=== PATIENT | female | born 1985 | race Caucasian/White ===

== ENCOUNTER 2016-08-22 13:01 | Emergency (ER) ==
[2016-08-22 13:14] VITALS: BP 154/85
--- NOTE | 2016-08-22 14:26 | Diag Imaging Result Document ---
PROCEDURE NAME: WRIST COMPLETE LEFT - 08/22/2016 LEFT WRIST, THREE VIEWS: FINDINGS: There is no evidence of fracture or dislocation. No other definite bony abnormalities are present. IMPRESSION: No acute disease.
--- NOTE | 2016-08-22 14:28 | PROVIDER DOCUMENTATION ---
HPI-Musculoskeletal Pain/Inj - GENERAL Source: patient <Irasema Carmona - Last Filed: 08/22/16 14:27> - GENERAL Source: patient - HX OF PRESENT ILLNESS-MUSKULOSKELTAL Quality of Pain: reports: aching Severity in ED: mild, moderate Onset/Duration: abrupt, this morning Timing: still present, constant Modifying Factors: worse with: movement Locality of Occurance: Home Similar Symptoms Previously?: No Recently seen or treated by another doctor?: No - FALL INJURY Location of Pain/Injury: reports: upper extremity (Left wrist) Pain Radiation: reports: no radiation Reason for Fall: reports: lost balance Symptoms prior to fall:: reports: none Loss of Consciousness: no loss of consciousness Injury Associated Symptoms: reports: arm pain, joint pain. denies: back/neck pain, chest pain, dizziness, vomiting <James Jackman - Last Filed: 08/22/16 15:27> - GENERAL Chief Complaint: Extremity Injury Stated Complaint: fall/L hand injury Time Seen by Provider: 08/22/16 14:24 - HX OF PRESENT ILLNESS-MUSKULOSKELTAL Nature of Presenting Problem: Patient is a 31 y/o f that presents to the ER with left wrist pain post fall. patient slipped and lost footing, she had an outstretch hand on left side. ( James Jackman) Review of Systems - Adult - REVIEW OF SYSTEMS - ADULT Constitutional: denies: chills, fever Eyes: denies: decreased vision, blurred vision, double vision Ears, Nose, Mouth & Throat: denies: epistaxis, sinus problem, mouth/dental pain , mouth swelling Cardiovascular: denies: chest pain, palpitations, syncope Respiratory: denies: hemoptysis, wheezing Gastrointestinal: denies: abdominal pain, diarrhea, nausea, vomiting Genitourinary: reports: no symptoms reported Musculoskeletal: reports: joint pain. denies: back pain, neck pain Integumentary: reports: no symptoms reported Neurological: reports: no symptoms reported Psychiatric: reports: no symptoms reported Endocrine: reports: no symptoms reported Hematologic/Lymphatic: reports: no symptoms reported Allergic/Immunologic: reports: no symptoms reported All Other Systems: Reviewed and Negative <James Jackman - Last Filed: 08/22/16 15:27> Past History - Adult - PAST MEDICAL HISTORY-ADULT Major Childhood Illnesses: reports: denies history Cardiovascular: reports: HTN, hyperlipidemia Gastrointestinal: reports: GERD Neurological: reports: headaches/migraines, other (one seizure) Psychiatric: reports: depression Other Conditions: reports: denies history - PRIOR SURGERIES/PROCEDURES Surgical/Procedure History: reports: cholecystectomy, BTL, , other ( Uterine ablation, fatty tumor) - PRIOR HOSPITALIZATIONS Prior Hospitalizations: reports: for other non-related - IMMUNIZATION STATUS Childhood Immunizations: See Nurse Assessment Flu Vaccine: See Nurse Assessment - FAMILY HISTORY Family History: CAD over 55 yo, CAD under 55yo, other (Dad passed of MA at age 43, Brother had MA at age 30) <Irasema Carmona - Last Filed: 08/22/16 14:27> - PAST MEDICAL HISTORY-ADULT Review of Records: reports: Old Records Reviewed, Nursing Assessment Review, Medications Reviewed Cardiovascular: reports: HTN Gastrointestinal: reports: GERD Neurological: reports: headaches/migraines, Seizures/Epilepsy Psychiatric: reports: anxiety, depression - PRIOR SURGERIES/PROCEDURES Surgical/Procedure History: reports: cholecystectomy, BTL, , tonsillectomy - IMMUNIZATION STATUS Childhood Immunizations: See Nurse Assessment Flu Vaccine: See Nurse Assessment - FAMILY HISTORY Family History: reviewed, not pertinent - SOCIAL HISTORY Smoking: non-smoker Living Situation: family <James Jackman - Last Filed: 08/22/16 15:27> Physical Exam-Injury Related - Physical Exam-Injury Related Initial Vital Signs Reviewed: Yes General Appearance: alert, no apparent distress Eyes: PERRL/EOMI, pink conjunctivae Head, Ears, Nose, Mouth & Throat: normocephalic/atraumatic, moist mucous membranes, normal ENT inspection Neck: non-tender, full range of motion, normal inspection Respiratory: chest non-tender, lungs clear, normal breath sounds, no respiratory distress, no accessory muscle use Cardiovascular: regular rate, rhythm, no edema, no murmur Abdominal Exam: normal bowel sounds, non tender, soft Back Exam: no CVA tenderness, no vertebral tenderness Extremity: no calf tenderness, normal capillary refill, pelvis stable, tenderness (left wrist, snuffbox tendernesss mild, positive pms). negative: deformity Integumentary: normal color, warm/dry Neurologic: grossly normal, no motor/sensory deficits Psych/Mental Status: normal mood/affect, normal thought content, normal thought process, oriented x 3 <James Jackman - Last Filed: 08/22/16 15:27> Progress <Irasema Carmona - Last Filed: 08/22/16 14:27> - XRAY 1 XRAY: Left XRAY Study: Wrist Impression: Normal XRAY Interpretation: negative <James Jackman - Last Filed: 08/22/16 15:27> - PLAN OF CARE/RESULTS Progress/Plan/Lab Results: Vital Signs Temp Pulse Resp BP Pulse Ox 08/22/16 13:13 97.5 F L 83 16 154/85 100 hydromorphone HCl * [From Dilaudid] Allergy (Mild, Verified 03/06/16 22:03) ITCHING Penicillins Allergy (Mild, Verified 03/06/16 22:03) VOMITING Sulfa (Sulfonamide Antibiotics) [Sulfa(Sulfonamide Antibiotics)] Allergy (Mild, Verified 03/06/16 22:03) RASH ketorolac tromethamine * [From Toradol] Adverse Reaction (Intermediate, Verified 03/06/16 22:03) HEADACHE tramadol HCl * [From Ultram] Adverse Reaction (Intermediate, Verified 03/06/16 22:03) HEADACHE Metoprolol [Lopressor] 25 mg PO HS 04/03/14 Ranitidine [Zantac] 150 mg PO HS 08/18/14 Omeprazole 40 mg PO HS 04/30/15 Topiramate [Topamax] 50 mg PO DAILY 12/14/15 Aripiprazole [Abilify] 5 mg PO QHS 03/06/16 Desvenlafaxine E.r. [Pristiq ER] 50 mg PO DAILY 03/06/16 Pregabalin [Lyrica] 100 mg PO BID 03/06/16 Triamterene/Hydrochlorothiazid [Triamterene-Hctz 37.5-25 mg Cp] 1 each PO DAILY 03/06/16 Mineral Oil [Mineral Oil Heavy] 30 ml MC BID #2000 oil 03/07/16 Peg 3350/Na Sulf,Bicarb,Cl/KCl [Golytely Solution] 4,000 ml PO ONCE #1 soln.recon 03/07/16 Diclofenac Sodium 50 mg PO Q8-12H PRN PRN #30 tablet.dr 08/22/16 Methocarbamol [Robaxin] 500 mg PO BID #14 tablet 08/22/16 Orders Category Date Time Status Wrist Splint DIRECTED Care 08/22/16 14:27 Active WRIST COMPLETE LEFT [RAD] Stat Exams 08/22/16 13:15 Draft pt sun be d/c home f/u with ortho, pt was clinically stable, rx given (James Jackman) Procedures - SPLINTING Left Upper Extremity Pre-Procedure Neurovascular Exam: Intact Pre-Fabricated Splint: Velcro Splint Application (Hand-Made): Wrist Applied By: ED Nurse Post Procedure Neurovascular Exam: Intact <James Jackman - Last Filed: 08/22/16 15:27> Departure - Departure Time of Disposition Order: 14:27 Certified Medical Emergency: Emergent <Irasema Carmona - Last Filed: 08/22/16 14:27> <James Jackman - Last Filed: 08/22/16 15:27> - Departure DIAGNOSIS: Left wrist sprain Qualifiers: Encounter type: initial encounter Qualified Code(s): S63.502A - Unspecified sprain of left wrist, initial encounter Disposition: HOME 01 Condition: Stable Additional Instructions: Follow up with Dr. Kenyon if you continue having pain ED Follow Up Instructions: You have been treated by a care provider in the Emergency Department. These instructions are being provided to you so you can have an understanding of how to care for yourself upon discharge. Upon discharge from the Emergency Department, you are responsible for making arrangements for follow-up care by a physician of your choice. Take all prescribed medications as directed. Return to the Emergency Department immediately for any new or worsening symptoms. You may call the Physician Referral phone number at [phone] to obtain a list of Physicians who are taking new patients. Prescriptions: Diclofenac Sodium 50 mg PO Q8-12H PRN PRN #30 tablet.dr ROMAN Reason: Pain Methocarbamol [Robaxin] 500 mg PO BID #14 tablet Referrals: Adri Costa CRNP [Primary Care Provider] - Vikki Noble MD [STAFF PHYSICIAN] - Instructions: Wrist Sprain Attestation - Scribe Verification/Attestation Scribe:: Jackman,James T. Acting as Scribe for:: Irasema Carmona Scribe documention review:: This chart was documented by a scribe and accurately reflects the service the provider performed and the decisions made by the provider. - Physician/ Mid-level Attestation Patient care was provided by Mid-level provider (SPECIAL PROCEDURES TECHNOLOGIST/PA):: Yes Mid-level provider:: Irasema Carmona Mid-level documentation review:: The Mid-level provider documentation, treatment plan and medical decision making was reviewed by the physician who agrees with all treatment and medical decision making by the MLP. <James Jackman - Last Filed: 08/22/16 15:27> Physician Attestation
== END 2016-08-22 15:27 | disposition home or self-care (01) ==
LOC: ED 13:01
DX: S63.502A Unspecified sprain of left wrist, initial encounter (principal); M25.532 Pain in left wrist; I10 Essential (primary) hypertension; E78.5 Hyperlipidemia, unspecified; Z82.49 Family history of ischemic heart disease and other diseases of the circulatory system; W19.XXXA Unspecified fall, initial encounter
CPT/HCPCS: 99283

== ENCOUNTER 2019-01-11 03:00 | Inpatient (IN) ==
[~2019-01-11 03:00] MED LIST: ASPIRIN PO ONE
[2019-01-11] MEDS ORDERED: ASPIRIN ONE (03:15)
--- NOTE | 2019-01-11 04:14 | PROVIDER DOCUMENTATION ---
HPI-General Adult - General Chief Complaint: Chest Pain Stated Complaint: CHEST PAIN/HIGH BP/SOB Time Seen by Provider: 01/11/19 04:08 Source: patient Allergies/Adverse Reactions: Patient Allergies Allergy/AdvReac Type Severity Reaction Status Date / Time hydromorphone HCl * Allergy Mild HIVES Verified 12/18/18 05:13 [From Dilaudid] Penicillins Allergy Mild VOMITING Verified 12/18/18 05:13 Sulfa (Sulfonamide Allergy Mild RASH Verified 12/18/18 05:13 Antibiotics) [Sulfa(Sulfonamide Antibiotics)] ketorolac tromethamine * AdvReac Intermediate HIVES Verified 12/18/18 05:13 [From Toradol] tramadol HCl * [From Ultram] AdvReac Intermediate HIVES Verified 12/18/18 05:13 Home Medications: Home Medication List Medication Instructions Recorded Confirmed Last Taken Type Metoprolol [Lopressor] 25 mg PO 04/03/14 03/09/18 03/08/18 22:30 History Desvenlafaxine E.r. [Pristiq ER] 100 mg PO QPM 03/06/16 03/09/18 03/08/18 22:30 History Butalbital/APAP/Caffeine [Fioricet] 1 ea PO Q4H PRN PRN #14 tab 01/08/18 03/09/18 03/09/18 12:00 Rx Diltiazem HCl [Diltiazem 24Hr ER] 240 mg PO 01/08/18 03/09/18 03/08/18 22:30 History Amitriptyline [Elavil] 50 mg PO QPM 02/17/18 03/09/18 03/08/18 22:30 History Diazepam [Valium] 5 mg PO PRN PRN 02/17/18 03/09/18 02/16/18 History Estradiol 1 tab PO QAM 02/17/18 03/09/18 03/09/18 07:30 History Zonisamide 3 cap PO HS 02/17/18 03/09/18 03/08/18 22:30 History Promethazine [Phenergan] 25 mg PO Q6H PRN PRN #20 tab 03/09/18 Unknown Rx Telmisartan 80 mg PO QAM 03/09/18 03/09/18 03/09/18 07:30 History Clindamycin [Cleocin] 300 mg PO Q6HR #40 cap 06/07/18 Unknown Rx Benzonatate [Tessalon Perle] 100 mg PO BID #12 capsule 09/10/18 Unknown Rx Methylprednisolone [Medrol Dosepak] 4 mg PO ONCE #1 package 09/10/18 Unknown Rx Promethazine [Phenergan] 1 tab PO Q6H PRN PRN #12 tab 12/18/18 Unknown Rx - History of Present Illness -Gen Adult Nature of Presenting Problems: 33 y/o F presents to the ED complaining of chest pain. States at about 6pm last night she began to have achy pain in her left chest with mild dyspnea and nausea. States she thought it was her anxiety so she took her valium and went to bed but then could not sleep due to the pain and states when she got sweaty she decided to come to the ED. No cough no recent illness. No calf pain or recent travel. Has HTN, HPL, and DM. No known CAD and has not had a prior stress test. Strong family history of early CAD Review of Systems - Adult - REVIEW OF SYSTEMS - ADULT Constitutional: reports: no symptoms reported Eyes: reports: no symptoms reported Ears, Nose, Mouth & Throat: reports: no symptoms reported Cardiovascular: reports: chest pain Respiratory: reports: no symptoms reported Gastrointestinal: reports: nausea. denies: abdominal pain, vomiting Genitourinary: reports: no symptoms reported Musculoskeletal: reports: no symptoms reported Integumentary: reports: no symptoms reported Neurological: reports: no symptoms reported Psychiatric: reports: no symptoms reported Endocrine: reports: no symptoms reported Hematologic/Lymphatic: reports: no symptoms reported Allergic/Immunologic: reports: no symptoms reported All Other Systems: Reviewed and Negative Past History - Adult - PAST MEDICAL HISTORY-ADULT Review of Records: reports: Old Records Reviewed, Nursing Assessment Review, Medications Reviewed, Social history reviewed & non-contributory. Major Childhood Illnesses: reports: denies history Cardiovascular: reports: HTN, hyperlipidemia Respiratory: reports: denies history Gastrointestinal: reports: GERD Obstetrical/Gynecological: reports: denies history Genitourinary: reports: denies history Musculoskeletal: reports: denies history Neurological: reports: headaches/migraines, Seizures/Epilepsy Psychiatric: reports: anxiety, depression Endocrine/Immune: reports: denies history Other Conditions: reports: denies history - PRIOR SURGERIES/PROCEDURES Surgical/Procedure History: reports: cholecystectomy, hysterectomy, BTL, C- section, tonsillectomy, orthopedic (extremity) (carpal tunnel bilateral), breast (tumor removed) - PRIOR HOSPITALIZATIONS Prior Hospitalizations: reports: for other non-related - IMMUNIZATION STATUS Childhood Immunizations: See Nurse Assessment Flu Vaccine: See Nurse Assessment - FAMILY HISTORY Family History: reviewed, not pertinent Physical Exam-General - PHYSICAL EXAM-ADULT Initial Vital Signs Reviewed: Yes - CONSTITUTIONAL General Appearance: appears well, alert, no apparent distress - EYES Eyes: PERRL/EOMI - HEAD, EARS, NOSE, MOUTH & THROAT HENMT: normocephalic/atraumatic, moist mucous membranes - NECK Neck: non-tender, full range of motion, supple - RESPIRATORY Respiratory: chest non-tender, lungs clear, normal breath sounds - CARDIOVASCULAR Cardiovascular: normal peripheral pulses, regular rate, rhythm, no edema, no JVD - GASTROINTESTINAL (ABDOMEN) Abdominal Exam: non tender, soft - MUSCULOSKELETAL Back Exam: normal inspection, no CVA tenderness, no vertebral tenderness Extremity: normal range of motion, non-tender - SKIN Integumentary: normal color, normal turgor, warm/dry - NEUROLOGIC Neurologic: grossly normal, no motor/sensory deficits - PSYCHIATRIC Psych/Mental Status: normal mood/affect, normal thought content, normal thought process, oriented x 3 Progress - PLAN OF CARE/RESULTS Progress/Plan/Lab Results: Vital Signs - 8 hr 01/11/19 03:00 Temperature 98.3 F Pulse Rate 95 H Respiratory Rate 18 Blood Pressure 116/73 O2 Sat by Pulse Oximetry 96 Orders Category Date Time Status If abnormal EKG, order: NOW Care 01/11/19 03:21 Active CHEST-2 VIEWS [RAD] Stat Exams 01/11/19 03:21 Taken Aspirin Med 01/11/19 03:15 Discontinued 325 mg .ROUTE .STK-MED ONE Aspirin Med 01/11/19 03:00 Discontinued 325 mg PO NOW ONE CP/Palp <45 No Known Cardiac Hx Stat Oth 01/11/19 03:21 Ordered EKG [EKG] Stat Ther 01/11/19 03:21 Ordered chest pain will further evaluate for causes including but not limited to acs, arrythmia, anxiety, ptx, pna, pe Result Diagrams: 01/11/19 03:32 01/11/19 03:32 - REASSESSMENT Reassessment #1 Status: improving (chest pain resolved. ED work up unremarkable but presentation concerning for ACS. Will admit for further evaluation and treatment. Discussed case with Dr. Acosta, hospitalist, who will see and admit pt.) - EKG 1 Time of EKG reading by physician:: 03:12 EKG Read and Signed by:: Kelsi Martinez EKG Interpretation (*Must complete 3 of following elements*): Normal (Sinus Rhythm, rate 96, no acute st changes, normal axis and intervals) - XRAY 1 XRAY Study: Chest Impression: Normal Departure - Departure Date of Disposition Decision: 01/11/19 Time of Disposition Decision: 06:06 DIAGNOSIS: Chest pain Qualifiers: Chest pain type: unspecified Qualified Code(s): R07.9 - Chest pain, unspecified Disposition: ADMITTED INPATIENT 09 Certified Medical Emergency: Emergent Condition: Good Referrals and Follow-Ups: Jermain Hernandez MD [Primary Care Provider] - - Critical Care Note This patient required my direct & personal management of CC.: No Attestation - Physician/ BOB Attestation Patient care was provided by Advanced Practice Provider:: No The physician spent face to face time with patient:: Yes Advanced Practice Provider documentation review:: Supervising physician onsite and consulted in the evaluation and care of this patient. The physician did have a face to face encounter with the patient.
[2019-01-11] MEDS ORDERED: NITROGLYCERIN TOP ONE (04:18)
[2019-01-11 04:55] LABS: BASO# 0.03 X1000 (0.0-0.2); BASO% 0.4 % (0.0-0.8); EOS# 0.24 X1000 (0.0-0.7); EOS% 2.8 % (0.0-10.0); HEMATOCRIT 38.1 % (37.0-47.0); HEMOGLOBIN 13.5 g/dL (12.0-16.0); IMM GRAN# 0.02 X1000 (0.0-0.04); IMM GRAN% 0.2 % (0.0-0.5); LYMPH% 38.7 % (20.5-51.1); MCH 31.3 PG (27-31); MCHC 35.4 g/dL (33-37); MCV 88.2 FL (81-99); MONO# 0.77 X1000 (0.11-0.59); MPV 10.2 FL (7.4-10.4); NEUT# 4.16 X1000 (1.4-6.5); NEUT% 48.9 % (42.2-75.2); PLT 288 X1000 (130-400); RBC 4.32 XMIL (4.2-5.4); RDW 13.1 % (11.5-14.5); WBC 8.52 X1000 (4.8-10.8)
[2019-01-11 05:19] LABS: AGAP 15; BUN 13 mg/dL (8-22); CALCIUM 8.4 mg/dL (8.8-10.2); CHLORIDE 101 mmol/L (98-107); COSMO 279; CREATININE 0.7 mg/dL (0.5-0.9); ESTIMATED GFR > 60; GLUCOSE 181 mg/dL (70-104); POTASSIUM 3.6 mmol/L (3.5-5.1); SODIUM 137 mmol/L (136-145); TCO2 21 mmol/L (25-35)
--- NOTE | 2019-01-11 06:44 | EKG Report ---
Test Performed on : 01/11/2019 03:06:33 AM Test Reason : chest pain Blood Pressure : / mmHG Vent. Rate : 096 BPM Atrial Rate : 096 BPM P-R Int : 202 ms QRS Dur : 088 ms QT Int : 386 ms P-R-T Axes : 052 024 020 degrees QTc Int : 487 ms Normal sinus rhythm. Prolonged QT Abnormal ECG When compared with ECG of 10-SEP-2018 11:51, No significant change was found Unconfirmed Result
--- NOTE | 2019-01-11 07:08 | Diag Imaging Result Doc PS360 ---
EXAM: CHEST-2 VIEWS HISTORY: chest pain TECHNIQUE: Chest two views COMPARISON: 09/10/2018 FINDINGS: The lungs are well expanded. The heart is borderline mildly prominent. The vessels are not distended. There are no infiltrates. No pleural effusions. IMPRESSION: No acute abnormality. Electronically signed by Reggie Vital 01/11/2019 7:05 AM
[2019-01-11 08:03] VITALS: BP 121/57
[2019-01-11 10:25] LABS: HEMOGLOBIN A1C 5.2 % (4.8-6.0)
[2019-01-11 11:11] LABS: ALB/GLOB RATIO 1.3; ALBUMIN 3.7 g/dL (3.5-5.0); DIRECT BILIRUBIN 0.1 mg/dL (0.00-0.20); TOTAL BILIRUBIN 0.22 mg/dL (0.20-1.00); TOTAL PROTEIN 6.6 g/dL (6.3-8.3)
[2019-01-11] MEDS ORDERED: MOTRIN PO ONE (11:58)
[2019-01-11] MEDS ORDERED: TYLENOL PO ONE (12:05)
--- NOTE | 2019-01-11 13:06 | HISTORY AND PHYSICAL ---
PRIMARY CARE PHYSICIAN: ROSALIE Peña. CHIEF COMPLAINT: Chest pain. HISTORY OF PRESENT ILLNESS: Ms. Kamara is a 33-year-old female with a history of morbid obesity, anxiety and depression, hypertension, Type 2 diabetes mellitus who comes into the ER with chest pain that began last night at around 6. She was not doing anything in particular, riding around in her car. She felt a midsternal pain which she relates radiated up to the neck and down the arm on the left. These episodes lasted 10-15 minutes at a time, and she has had multiple of these episodes throughout the night. She also reports shortness of breath and some nausea. She denies any fevers or chills, no cough or congestion. When she got to the ER today, labs were done and found to be unremarkable. EKG did not show anything acute. Chest x-ray was negative. We will admit her for further treatment and evaluation. PAST MEDICAL HISTORY: 1. Morbid obesity. 2. Hypertension. 3. Anxiety and depression. 4. Lifelong hormone replacement therapy, status post hysterectomy. 5. Pseudoseizures. 6. Migraine headaches. SURGICAL HISTORY: She has had back surgery. She has had a hysterectomy, cholecystectomy, fatty tumor removal from the breast x 2, D C, hysteroscopy, endometrial ablation. SOCIAL HISTORY: No tobacco, alcohol or drug use. She is . She has 3 children. FAMILY HISTORY: Father in his 40s from heart disease. Mother recently with pneumonia and sepsis. REVIEW OF SYSTEMS: A 14-point review of systems was obtained and found to be negative with the exception of the HPI. ALLERGIES: Dilaudid, penicillin, sulfur, Toradol, Tramadol. HOME MEDICATIONS: Yet to be compiled. PHYSICAL EXAMINATION: VITAL SIGNS: Blood pressure 121/57; heart rate 105; respiratory rate 17; O2 saturation 98% on room air; temperature 98.1. GENERAL: A morbidly obese female lying in the hospital bed in no acute distress. NEUROLOGICAL: The patient is awake, alert and oriented. Follows commands. No focal deficits. HEENT: Head is atraumatic and normocephalic. Pupils are equal, round and reactive to light. Oral mucosa is moist. Dentition is extremely poor. NECK: Trachea is midline. There is no JVD. CHEST: Diminished but clear to auscultation. CARDIOVASCULAR: Regular rate and rhythm. S1 and S2 are noted. No murmurs. GASTROINTESTINAL: Soft, nontender and nondistended. Bowel sounds positive. EXTREMITIES: No edema, clubbing or cyanosis. Pulses are 2+ bilaterally. DIAGNOSTIC DATA: EKG sinus rhythm. No acute ST or T abnormalities. Chest x-ray is negative. Laboratory data reviewed. Abnormalities include a C02 of 21, glucose 181 and calcium 8.4 otherwise unremarkable. ASSESSMENT AND PLAN: 1. Atypical chest pain: We will admit the patient and order a stress test, make sure she is on aspirin daily, check hemoglobin A1C and lipid panel and follow that. If negative, hopefully, we can send her home. Stress test has been ordered for today. We will also start her on p.o. Prilosec for the high likelihood of reflux or gastritis. 2. Headache with history of migraines: We will try to get her medicines reconciled and treat accordingly. 3. Hypertension: Currently stable, awaiting med rec to continue her home meds if appropriate. 4. Anxiety and depression: Stable, continue home meds once reconciled. 5. Morbid obesity: Weight loss advised. 6. Further recommendations to follow. Dictated by ROSALIE Marrero for Miguel A Ornelas MD cc: ROSALIE Marrero MD
--- NOTE | 2019-01-11 14:32 | EKG Report ---
Test Performed on : 01/11/2019 12:40:59 PM Test Reason : chest pain Blood Pressure : / mmHG Vent. Rate : 079 BPM Atrial Rate : 079 BPM P-R Int : 184 ms QRS Dur : 086 ms QT Int : 430 ms P-R-T Axes : 060 022 024 degrees QTc Int : 493 ms Normal sinus rhythm. Prolonged QT Abnormal ECG When compared with ECG of 11-JAN-2019 03:06, (Unconfirmed) No significant change was found Confirmed by Shane RUANO, Laci Alvarenga ([id number]) on 01/14/2019 11:29:44 AM
--- NOTE | 2019-01-11 16:31 | Diag Imaging Result Document ---
PROCEDURE NAME: MYOCARDIAL PERF SCAN, STR/REST - 01/11/2019 INDICATION: Chest pain. PROCEDURE PERFORMED: 1. Kaitlyn protocol stress. 2. One-day stress rest myocardial perfusion imaging. PROCEDURE IN DETAIL: Ms Kamara was brought to the nuclear laboratory and had a resting study with injection of 15.6 mCi of technetium-99m sestamibi with usual imaging protocol utilized. Subsequently was brought back and had a Kaitlyn protocol stress and at peak stress, was injected with 46 millicuries of technetium-99m sestamibi with usual imaging protocol utilized. FINDINGS: KAITLYN PROTOCOL STRESS RESULTS: 1. Baseline EKG showed sinus rhythm. 2. Patient exercised for a total of 6 minutes 5 seconds, achieving peak heart rate of 164 and 7 METS. Peak heart rate was 88% of age and sex predicted heart rate max. Exercise capacity was significantly reduced at only 70% of age and sex predicted exercise capacity. 3. Appropriate blood pressure response to exercise. 4. Test was terminated due to fatigue. 5. There was chest pain at peak exercise that was rated at 4/10. 6. No evidence of ischemic related EKG changes or significant arrhythmias. PERFUSION IMAGING RESULTS: 1. No evidence of abnormal extracardiac uptake. 2. TID ratio is 1.02. 3. There is a small sized, mild intensity, fixed defect in the midanterior and basal anterior wall. This appears most likely suggestive of soft tissue attenuation. Wall motion is intact in this area. It actually improved somewhat from rest to stress imaging. 4. There is a normal ejection fraction of 82%. The end-diastolic volume is 91, end systolic volume is 17. Normal wall motion is identified on this study. cc: MD Easton Portillo CRNP
[2019-01-12] MEDS ORDERED: PRILOSEC PO SCH (07:00)
[2019-01-12] MEDS ORDERED: ASPIRIN PO SCH (09:00)
--- NOTE | 2019-01-12 16:51 | DISCHARGE SUMMARY ---
ADMISSION DATE: 01/11/2019 DISCHARGE DATE: 01/11/2019 DISPOSITION: Home. FOLLOW-UP: 1. Dr. Hernandez. 2. Dr. Garrett. CONSULTATION DURING THIS ADMISSION: None. IMAGING STUDIES OF SIGNIFICANCE: A chest x-ray showed no acute abnormality. A myocardial perfusion scan showed an ejection fraction of 82%, normal wall motion, no defects. ADMISSION DIAGNOSES: 1. Atypical chest pain. 2. Headache with history of migraines. 3. Hypertension. 4. Anxiety. 5. Morbid obesity. DIAGNOSES AT THE TIME OF DISCHARGE: 1. Atypical chest pain with normal EKGs and stress test, most likely noncardiac in nature. 2. History of anxiety with recurrent panic attacks. 3. Suspected obstructive sleep apnea. Patient advised to follow up with Dr. Garrett for sleep studies. 4. Abnormal thyroid stimulating hormone. The patient is advised to repeat the thyroid function tests in about a week's time and follow up with her primary care doctor. 5. Morbid obesity with a body mass index of 46, weight management, weight loss advised. 6. Hypertension, controlled. DISCHARGE MEDICATIONS: 1. Metoprolol 25 mg p.o. at bedtime. 2. Pristiq 100 mg p.o. daily. 3. Diltiazem 240 p.o. at bedtime. 4. Valium 5 mg p.o. p.r.n. 5. Amitriptyline 50 mg p.o. q.p.m. 6. Zonisamide 300 p.o. at bedtime. 7. Telmisartan 80 mg p.o. q.a.m. 8. Phenergan p.r.n. PRESENTING COMPLAINT: Chest pain. HISTORY OF PRESENTING COMPLAINT: Ms. Kamara is a 33-year-old female with a history of depression, anxiety, morbid obesity, pseudoseizures and migraine, who came to the emergency department because of acute onset of chest pain associated with some shortness of breath and panic attack, and was evaluated and admitted for cardiac risk stratification. The patient underwent a stress test which came back negative. Imaging studies were also unremarkable. Her lab works were all normal. Her TSH was slightly elevated. She has been advised to repeat this together with free T4 in about a week's time. The patient does not show any remarkable symptoms related with thyroid, so we have advised her to repeat this and follow up with primary care doctor to get this straightened out. Upon talking to her, it appears to me that she also has significant obstructive sleep apnea and she has been advised to follow up with Dr. Garrett. The was at the bedside at the time of encounter, and all discharge instructions have been discussed with both of them and they voiced understanding. TIME SPENT FOR DISCHARGE: 38 minutes. cc: MD Rachael Eastman CRNP Mamoun I. Najjar, MD
== END 2019-01-11 18:30 | disposition home or self-care (01) | DRG 313 ==
LOC: ED 03:00 → 4N 03:00 → OBSVTOIN 08:43
PROVIDERS: ATTEND Internal Medicine
CPT/HCPCS: 71020; 71046; 78452; 80048; 80076; 82550; 83036; 83880; 84443; 84484; 85025; 85379; 93005; 93010; 93017; 99285; A9270; A9500

== ENCOUNTER 2019-11-13 23:26 | Inpatient (IN) ==
[2019-11-14 00:22] LABS: BASO# 0.09 X1000 (0.0-0.2); BASO% 0.8 % (0.0-0.8); EOS# 0.42 X1000 (0.0-0.7); EOS% 3.8 % (0.0-10.0); HEMATOCRIT 45.9 % (37.0-47.0); HEMOGLOBIN 16.4 g/dL (12.0-16.0); IMM GRAN# 0.04 X1000 (0.0-0.04); IMM GRAN% 0.4 % (0.0-0.5); LYMPH# 2.77 X1000 (1.2-3.4); MCH 30.9 PG (27-31); MCHC 35.7 g/dL (33-37); MCV 86.6 FL (81-99); MONO# 1.04 X1000 (0.11-0.59); MONO% 9.4 % (1.7-9.3); MPV 9.6 FL (7.4-10.4); NEUT% 60.6 % (42.2-75.2); PLT 341 X1000 (130-400); RDW 12.9 % (11.5-14.5); WBC 11.06 X1000 (4.8-10.8)
[2019-11-14 00:46] LABS: AGAP 16; ALB/GLOB RATIO 1.3; ALBUMIN 4.9 g/dL (3.5-5.0); ALKALINE PHOSPHATASE 53 U/L (32-104); AMYLASE 65 U/L (20-200); BUN 16 mg/dL (8-22); CALCIUM 9.5 mg/dL (8.8-10.2); CHLORIDE 99 mmol/L (98-107); COSMO 272; CREATININE 0.9 mg/dL (0.5-0.9); ESTIMATED GFR > 60; GLUCOSE 115 mg/dL (70-104); GOT 23 U/L (10-30); GPT 33 U/L (10-36); LIPASE 53 U/L (13-60); POTASSIUM 3.8 mmol/L (3.5-5.1); SODIUM 135 mmol/L (136-145); TCO2 20 mmol/L (25-35); TOTAL BILIRUBIN 0.41 mg/dL (0.20-1.00); TOTAL PROTEIN 8.6 g/dL (6.3-8.3)
[2019-11-14 01:01] LABS: URINE SOURCE CLEAN CATCH
[2019-11-14 01:21] LABS: BILIRUBIN URINE NEGATIVE (NEGATIVE); BLOOD URINE NEGATIVE (NEGATIVE); COLOR YELLOW; GLUCOSE URINE NEGATIVE (NEGATIVE); KETONE URINE TRACE mg/dL (NEGATIVE); LEUKOCYTES URINE LARGE (NEGATIVE); NITRITE URINE NEGATIVE (NEGATIVE); PROTEIN URINE 100 mg/dL (NEGATIVE); SP GRAVITY URINE 1.033; TURBIDITY URINE CLEAR (CLEAR); UR EPITHELIAL CELLS <10 /HPF (<10); URINE BACTERIA 1+ /HPF; URINE RBC <10 /HPF (<10); URINE WBC 20-40 /HPF (<10); UROBILINOGEN URINE 2 mg/dL (NORMAL)
[2019-11-14] MEDS ORDERED: NS 1,000 ML IV ONE (01:45)
[2019-11-14] MEDS ORDERED: ZOFRAN IV ONE (01:45)
[2019-11-14] MEDS ORDERED: CIPRO 400 MG/D5W 400 MG/200 ML IVPB IV ONE (01:46)
--- NOTE | 2019-11-14 01:47 | PROVIDER DOCUMENTATION ---
This chart was entered by Charla Perez Scribe, acting as scribe for Kd Handy MD. HPI-Abdominal Pain/GI Problem - General Chief Complaint: Abdominal Pain Stated Complaint: ABD PAIN Time Seen by Provider: 11/13/19 23:46 Source: patient Allergies/Adverse Reactions: Patient Allergies Allergy/AdvReac Type Severity Reaction Status Date / Time hydromorphone HCl * Allergy Mild HIVES Verified 11/14/19 00:18 [From Dilaudid] Penicillins Allergy Mild VOMITING Verified 11/14/19 00:18 Sulfa (Sulfonamide Allergy Mild RASH Verified 11/14/19 00:18 Antibiotics) [Sulfa(Sulfonamide Antibiotics)] ketorolac tromethamine * AdvReac Intermediate HIVES Verified 11/14/19 00:18 [From Toradol] tramadol HCl * [From Ultram] AdvReac Intermediate HIVES Verified 11/14/19 00:18 Home Medications: Home Medication List Medication Instructions Recorded Confirmed Last Taken Type Cyanocobalamin (Vitamin B-12) 1,000 mcg IM Q7D 09/13/19 11/14/19 Unknown History [Vitamin B-12] Dulaglutide [Trulicity] 0 mg SQ Q7D 09/13/19 11/14/19 Unknown History Diltiazem [Cardizem] 100 mg PO DAILY 11/14/19 11/14/19 Unknown History - History of Present Illness-ABD Nature of Presenting Problems: pt is a 34 yr old female presenting with 1 day complaint of general abdominal pain, nausea and diarrhea, pt reports diarrhea is chronic and without change from normal, pt denies any urinary complaint, vomiting or fever. pt reports onset this AM, continued throughout the day and became markedly worse at 2129, pt angelhn called her Operative Supervisor Dr Young who told her to come to ER for CT scan Abdominal Pain Onset Location: reports: generalized abdomen Pain Radiation: reports: no radiation Quality of Pain: reports: aching, dull Severity in ED: reports: moderate Onset/Duration: reports: this morning Timing: reports: getting worse (2129) Activities at Onset: reports: light activity Exposure to sick contacts?: No Modifying Factors: improves with: nothing Associated Symptoms: reports: diarrhea (chronic-no change), nausea. denies: fever/chills, shortness of breath, vomiting Last BM: this evening Dark Stools Present?: reports: none noticed Rectal Bleeding: reports: none Rectal Pain: reports: none Emesis Description: reports: none Bruising or Bleeding Gums?: No Similar Symptoms Previously?: Yes Recently seen or treated by another doctor?: Yes Review of Systems - Adult - REVIEW OF SYSTEMS - ADULT Constitutional: denies: chills, fever Eyes: reports: no symptoms reported Ears, Nose, Mouth & Throat: reports: no symptoms reported Cardiovascular: denies: chest pain, palpitations, syncope Respiratory: denies: cough, shortness of breath Gastrointestinal: reports: abdominal pain, diarrhea (chronic-no change), nausea. denies: vomiting Genitourinary: denies: dysuria, frequency, flank pain Musculoskeletal: reports: no symptoms reported Integumentary: reports: no symptoms reported Neurological: denies: dizziness/vertigo, headache/migraines Psychiatric: reports: no symptoms reported Endocrine: reports: no symptoms reported Hematologic/Lymphatic: reports: no symptoms reported Allergic/Immunologic: reports: no symptoms reported All Other Systems: Reviewed and Negative Past History - Adult - PAST MEDICAL HISTORY-ADULT Review of Records: reports: Nursing Assessment Review, Medications Reviewed, Social history reviewed & non-contributory. Major Childhood Illnesses: reports: denies history Cardiovascular: reports: HTN, hyperlipidemia Respiratory: reports: denies history Gastrointestinal: reports: GERD, IBS Obstetrical/Gynecological: reports: denies history Genitourinary: reports: denies history Musculoskeletal: reports: denies history Neurological: reports: headaches/migraines, Seizures/Epilepsy Psychiatric: reports: anxiety, depression Endocrine/Immune: reports: denies history Other Conditions: reports: denies history - PRIOR SURGERIES/PROCEDURES Surgical/Procedure History: reports: cholecystectomy, hysterectomy, BTL, C- section, tonsillectomy, orthopedic (extremity) (carpal tunnel bilateral), breast (tumor removed) - PRIOR HOSPITALIZATIONS Prior Hospitalizations: reports: for other non-related - IMMUNIZATION STATUS Childhood Immunizations: See Nurse Assessment Flu Vaccine: See Nurse Assessment - FAMILY HISTORY Family History: reviewed, not pertinent - SOCIAL HISTORY Smoking: denies Substance Use: denies Living Situation: family Physical Exam-General - PHYSICAL EXAM-ADULT Initial Vital Signs Reviewed: Yes - CONSTITUTIONAL General Appearance: appears well, alert, no apparent distress - EYES Eyes: PERRL/EOMI - HEAD, EARS, NOSE, MOUTH & THROAT HENMT: normocephalic/atraumatic, moist mucous membranes, normal ENT inspection - NECK Neck: non-tender, full range of motion, supple, normal inspection - RESPIRATORY Respiratory: chest non-tender, lungs clear, normal breath sounds - CARDIOVASCULAR Cardiovascular: normal peripheral pulses, regular rate, rhythm, no edema - GASTROINTESTINAL (ABDOMEN) Abdominal Exam: normal bowel sounds, soft, tenderness (general tenderness) - LYMPHATIC Lymphatic: no adenopathy - MUSCULOSKELETAL Back Exam: normal inspection, no CVA tenderness, no vertebral tenderness Extremity: normal range of motion, non-tender, normal gait, normal inspection - SKIN Integumentary: normal color, normal turgor, warm/dry - NEUROLOGIC Neurologic: grossly normal, no motor/sensory deficits - PSYCHIATRIC Psych/Mental Status: normal mood/affect Progress - PLAN OF CARE/RESULTS Progress/Plan/Lab Results: Vital Signs - 8 hr 11/13/19 23:32 Temperature 98.0 F Pulse Rate 102 H Respiratory Rate 20 Blood Pressure 135/92 O2 Sat by Pulse Oximetry 97 Laboratory Results - last 24 hr 11/13/19 23:54 WBC 11.06 H RBC 5.30 Hgb 16.4 H Hct 45.9 MCV 86.6 MCH 30.9 MCHC 35.7 RDW Std Deviation 12.9 Plt Count 341 MPV 9.6 Immature Gran % (Auto) 0.4 Neut % (Auto) 60.6 Lymph % (Auto) 25.0 [place] % (Auto) 9.4 H Eos % (Auto) 3.8 Baso % (Auto) 0.8 Immature Gran # (Auto) 0.04 Neut # (Auto) 6.70 H Lymph # (Auto) 2.77 [place] # (Auto) 1.04 H Eos # (Auto) 0.42 Baso # (Auto) 0.09 Orders Category Date Time Status ED: Urine Bedside ORDERED Care 11/13/19 23:40 Active Saline Loc DIRECTED Care 11/13/19 23:39 Active NPO Diet 11/13/19 23:[address] ABD/PELVIS W/IV CONT ONLY [CT] Stat Exams 11/13/19 23:49 Ordered AMYLASE [CHEM] Stat Lab 11/14/19 00:01 Received CBC WITH ELECTRONIC DIFF [HEME] Stat Lab 11/14/19 00:01 Completed COMPREHENSIVE METABOLIC PANEL [CHEM] Stat Lab 11/14/19 00:01 Received LIPASE [CHEM] Stat Lab 11/14/19 00:01 Received URINALYSIS W/POSS RFLX CULT [URINALYSIS] Stat Lab 11/13/19 23:39 Uncollected Result Diagrams: 11/15/19 06:40 11/15/19 06:40 - CONSULTS/PCP/HOSPITALIST Notification #1 *Consult/PCP/Hospitalist*: d/w Dr Victoria Consult Disposition: Admit Departure - Departure Date of Disposition Decision: 11/14/19 Time of Disposition Decision: 01:30 DIAGNOSIS: Partial small bowel obstruction, UTI (urinary tract infection) Disposition: ADMITTED INPATIENT 09 Certified Medical Emergency: Emergent Condition: Stable - Critical Care Note This patient required my direct & personal management of CC.: No Attestation - Physician/ BOB Attestation Patient care was provided by Advanced Practice Provider:: No The physician spent face to face time with patient:: Yes Advanced Practice Provider documentation review:: Supervising physician onsite and consulted in the evaluation and care of this patient. The physician did have a face to face encounter with the patient. This chart was documented by the indicated scribe, (Charla Perez, Corey) and accurately reflects the services I performed and decisions made by me, Kd Handy MD, as attested by the provider's signature.
[2019-11-14 03:14] LABS: HEMOGLOBIN A1C 5.5 % (4.8-6.0)
[2019-11-14] MEDS: MORPHINE IV PRN ×6 (04:22→22:17)
[2019-11-14] MEDS: NS 1,000 ML IV SCH ×3 (04:22→15:16)
[2019-11-14] MEDS: ZOFRAN IV PRN ×2 (04:23→22:16)
[2019-11-14] MEDS: LOVENOX SUBQ SCH (04:23)
--- NOTE | 2019-11-14 05:40 | HISTORY AND PHYSICAL ---
CHIEF COMPLAINT: Abdominal pain. HPI: Ms. Kamara is a 34-year-old female with a history of morbid obesity, anxiety and depression, hypertension, diabetes mellitus type 2, pseudoseizures, IBS with chronic diarrhea, migraine headaches, who comes in with abdominal pain that was very sharp. Apparently she spoke to Dr. Sewell, who told her to come to the emergency room to get a CT scan. She denied any type of vomiting although she did have nausea. No hematochezia. No melena. Originally the pain was dull and moderate, then it got so bad that she was having trouble walking. She denied any urinary symptoms such as frequency, hematuria, or dysuria. In the emergency room the CT scan showed a partial small bowel obstruction. She was also noted to have a leuk esterase positive urinary tract infection. She will be admitted for further evaluation and treatment. PAST MEDICAL HISTORY: See HPI. PREVIOUS SURGICAL HISTORY: Back surgery, hysterectomy, cholecystectomy, fatty tumor removal from breast x2, D and C, hysteroscopy, endometrial ablation. SOCIAL HISTORY: No tobacco, alcohol, or illicit drugs. She is with 3 children. Works at [employer]. FAMILY HISTORY: Father in his 40s with heart disease. Mother recently in the last year with the pneumonia and sepsis. ALLERGIES: Penicillin causing vomiting, sulfa causing rash, Toradol causing hives, Ultram causing hives, hydromorphone causing hives. HOME MEDICATIONS: 1. Trulicity 0.75 mg subcutaneously every 7 days. 2. Cardizem 120 mg p.o. daily. 3. Vitamin B12, 1000 mcg IM q.7 days. REVIEW OF SYSTEMS: A 14 point review of systems was conducted with the patient. Pertinent positives listed above in the HPI. All other systems reviewed and found to be negative. PHYSICAL EXAMINATION: VITAL SIGNS: Temperature 98, pulse 102, respirations 20, blood pressure 135/92, oxygen saturation 97% on room air. GENERAL: Pleasant 34-year-old female laying in the ER stretcher. She is in no acute distress. Alert and oriented x3. HEENT: Head is atraumatic, normocephalic. Pupils equal, round, reactive to light. Extraocular eye movements intact. Sclera is anicteric. Conjunctiva pink. Oral mucosa is moist. Poor dentition noted. NECK: Supple. No JVD. Trachea is midline. No cervical lymphadenopathy. CARDIAC: S1, S2 appreciated. No murmurs, gallops rubs. LUNGS: Clear to auscultation bilaterally. No rhonchi, wheezes, rales. Symmetric rise and fall respirations. ABDOMEN: Protuberant, soft, nondistended. Tender in the left lower quadrant suprapubic area. Bowel sounds slightly hyperactive. No pulsatile masses or organomegaly. EXTREMITIES: No clubbing, cyanosis or edema. 2+ pedal pulses bilaterally. GENITOURINARY: No bladder distention. Suprapubic pain noted. Patient voids. Otherwise deferred. NEUROLOGICAL: Alert and oriented x3. Cranial nerves 2-12 grossly intact. DIAGNOSTIC DATA: CT of the abdomen shows a partial small bowel obstruction. LABORATORY DATA: WBC 11.06, hemoglobin 16.4, hematocrit 45.9, platelet count 341,000. Sodium 135, potassium 2.8, chloride 99, carbon dioxide 20, BUN 16, creatinine 0.9, glucose 115. Urine leuk esterase positive, 20-40 WBCs, 1+ bacteria. ASSESSMENT: 1. Partial small bowel obstruction. 2. Urinary tract infection. 3. Diabetes mellitus type 2. 4. Hypertension. PLAN: Admit patient to the medical floor. Hold n.p.o. Will continue Cardizem with a sip of water. Cipro 400 mg IV q.12h. for urinary tract infection. Morphine as needed for pain. Zofran as needed for nausea. Fluids. Will run normal saline. Check hemoglobin A1c. Sliding scale insulin before meals and at bedtime. Further recommendations based on clinical course. Dictated by ROSALIE Paula for Alexa Victoria MD cc: ROSALIE Paula MD
[2019-11-14] MEDS: HUMALOG SUBQ SCH ×4 (06:00→22:18)
[2019-11-14] MEDS ORDERED: HUMALOG SUBQ SCH (07:00)
--- NOTE | 2019-11-14 07:43 | Diag Imaging Result Doc PS360 ---
EXAM: CT ABD/PELVIS W/IV CONT ONLY INDICATION: abd pain TECHNIQUE: This exam was performed using automated exposure control, adjustment of mA or kV according to patient size, and/or use of iterative reconstruction technique. COMPARISON: 09/13/2019 FINDINGS: There is patchy right lower lobe consolidation indicating pneumonia. There has been a prior cholecystectomy. There is mild diffuse hepatic steatosis. The spleen, pancreas, adrenal glands, kidneys, and urinary bladder are unremarkable. There has been a prior hysterectomy. The appendix is not clearly identified. There is no secondary sign of appendicitis. There is moderate distention of multiple loops of small bowel that is predominantly the proximal and mid small bowel. The loops contain air-fluid levels. The distal small bowel is not distended but but is not collapsed. I can identify no obvious transition point. Consider distal partial bowel obstruction versus ileus. No bowel wall thickening is appreciated. The remainder of the GI tract is grossly unremarkable. No focal inflammatory changes, free abdominal gas, or free fluid is identified. There is multilevel lumbar fusion and laminectomies. There is no evidence of acute osseous abnormality. IMPRESSION: 1.Right lower lobe pneumonia. 2.Multiple moderately distended loops of small bowel that is most significant at the proximal and mid small bowel. Although no obvious transition point can be identified, partial small bowel obstruction cannot be excluded. Ileus is also a consideration. 3.Other incidental/nonacute findings detailed above. Electronically signed by Darien Gregory 11/14/2019 7:41 AM
[2019-11-14] MEDS: CARDIZEM CD PO SCH (08:48)
--- NOTE | 2019-11-14 12:27 | PROGRESS NOTE ---
DATE: 11/14/2019 BRIEF PROGRESS NOTE: Patient admitted with abdominal pain and distention. Initial evaluation suggesting partial small-bowel obstruction and fatty liver, and possible urinary tract infection. The patient does have a history of hysterectomy and cholecystectomy. No previous obstructive symptoms, although she does have obvious frequent diarrhea. The patient's distention and abdominal pain are already improving. We will continue n.p.o. and fluids. We will recheck a KUB in the morning and if it is improving, as I suspect it will be, we will start her on clears and begin advancing. The patient did not initially complain of any respiratory symptoms but CT of the abdomen and pelvis was suggesting possible right lower lobe pneumonia. Patient was further questioned. She states that she did have a cough and fever at home but that these were resolving prior to the onset of her abdominal symptoms and are minimal at this point. The patient was put on Cipro initially. When CT showed possible pneumonia, this was changed to Levaquin to treat both UTI and possible community-acquired pneumonia. Monitoring sugars and continue home diltiazem for blood pressure. Addendum: contacted by Dr. Mcfarlane. Patient apparently was tested for COVID19 as an outpatient and has returned positive. patient being placed on isolation. respiratory symptoms are minimal and improved from the time she tested so she appears to be resolving but may still be shedding virus. DAQUAN
[2019-11-14] MEDS ORDERED: LEVAQUIN 750 MG/D5W 750 MG/150 ML IVPB IV SCH (14:00)
[2019-11-14] MEDS ORDERED: CIPRO 400 MG/D5W 400 MG/200 ML IVPB IV SCH (14:00)
[2019-11-14] MEDS ORDERED: DIFLUCAN PO ONE (21:00)
[2019-11-15] MEDS: MORPHINE IV PRN ×4 (01:11→17:27)
[2019-11-15] MEDS: LOVENOX SUBQ SCH ×2 (01:11→04:16)
[2019-11-15] MEDS: HUMALOG SUBQ SCH ×3 (06:09→16:14)
[2019-11-15 07:00] LABS: BASO# 0.03 X1000 (0.0-0.2); BASO% 0.5 % (0.0-0.8); EOS# 0.41 X1000 (0.0-0.7); EOS% 6.6 % (0.0-10.0); HEMATOCRIT 44.7 % (37.0-47.0); HEMOGLOBIN 15.3 g/dL (12.0-16.0); IMM GRAN# 0.02 X1000 (0.0-0.04); IMM GRAN% 0.3 % (0.0-0.5); LYMPH# 2.74 X1000 (1.2-3.4); LYMPH% 43.9 % (20.5-51.1); MCHC 34.2 g/dL (33-37); MCV 87.6 FL (81-99); MONO# 0.49 X1000 (0.11-0.59); MONO% 7.9 % (1.7-9.3); MPV 9.5 FL (7.4-10.4); NEUT# 2.55 X1000 (1.4-6.5); NEUT% 40.8 % (42.2-75.2); PLT 297 X1000 (130-400); RDW 12.8 % (11.5-14.5); WBC 6.24 X1000 (4.8-10.8)
[2019-11-15 07:17] LABS: AGAP 13; BUN 9 mg/dL (8-22); CHLORIDE 103 mmol/L (98-107); COSMO 277; CREATININE 0.8 mg/dL (0.5-0.9); ESTIMATED GFR > 60; GLUCOSE 112 mg/dL (70-104); POTASSIUM 3.6 mmol/L (3.5-5.1); SODIUM 139 mmol/L (136-145); TCO2 23 mmol/L (25-35)
--- NOTE | 2019-11-15 07:56 | Diag Imaging Result Doc PS360 ---
EXAM: KUB ABDOMEN HISTORY: partial SBO TECHNIQUE: Two views COMPARISON: 01/09/2013 FINDINGS: The gallbladder has been removed. No organomegaly. There has been surgery to the lower lumbar spine. No bowel obstruction. IMPRESSION: No plain film evidence of a bowel obstruction. Electronically signed by Reggie Vital 11/15/2019 7:53 AM
[2019-11-15] MEDS: NS 1,000 ML IV SCH ×2 (08:48→17:27)
[2019-11-15] MEDS: ZOFRAN IV PRN ×4 (08:48→22:21)
[2019-11-15] MEDS: CARDIZEM CD PO SCH (08:48)
[2019-11-15] MEDS: AZACTAM 1 GM in NS 50 ML IV SCH ×2 (08:49→17:26)
--- NOTE | 2019-11-15 15:31 | PROGRESS NOTE ---
DATE: 11/15/2019 SUBJECTIVE: This morning, Ms. Kamara referred to be doing well, denies any new complaints. She said abdominal pain is improving and no vomiting. Has not had any bowel movement today, but she says she had a couple yesterday. A repeat KUB this morning shows no evidence of bowel obstruction. OBJECTIVE: Vital signs: Blood pressure is 112/62, pulse of 89, respiration is 16, temperature is 98.5 degrees. General: Ms. Kamara is a 34-year-old female. She is in bed. She is morbidly obese with a BMI of 44.6. HEENT: Mucosa is pink and moist. She has very poor dentition. Chest: Clear to auscultation. No crepitations. No rhonchi. Cardiovascular: Regular rate and rhythm. GI: Abdomen was soft, nontender. Bowel sounds present. Extremities: No pedal edema. EXPERIMENTAL DISPLAY BUILDER: Patient is awake, alert, oriented. There is no focal deficit. LABORATORY DATA: Has been reviewed. No abnormality except for TSH, which is 10.7. We will check the free T4. The patient seems to be hypothyroid. ASSESSMENT: 1. Partial small bowel obstruction. This seems to have improved, KUB this morning is unremarkable, patient is not symptomatic. We are going to start her on clear liquids and then advance as necessary. 2. Diabetes mellitus. 3. Hypertension, controlled. 4. Suspected hypothyroidism. We will repeat a TSH with free T4 and also check on her cholesterol levels. 5. Recently treated for pneumonia/bronchitis. Coronavirus Disease 2019 is back positive. The patient is currently on isolation. cc: Miguel A Ornelas MD
[2019-11-16] MEDS: HUMALOG SUBQ SCH ×3 (01:09→10:51)
[2019-11-16] MEDS: LOVENOX SUBQ SCH ×2 (01:19→04:32)
[2019-11-16] MEDS: AZACTAM 1 GM in NS 50 ML IV SCH ×2 (01:19→10:30)
[2019-11-16] MEDS: MORPHINE IV PRN (01:19)
[2019-11-16] MEDS ORDERED: NORCO-5 PO PRN (09:37)
[2019-11-16] MEDS: NS 1,000 ML IV SCH (10:30)
[2019-11-16] MEDS: CARDIZEM CD PO SCH (10:30)
[2019-11-16 10:39] VITALS: BP 131/73
--- NOTE | 2019-11-16 15:40 | PROGRESS NOTE ---
DATE: 11/16/2019 NO DICTATION cc: Miguel A Ornelas MD
--- NOTE | 2019-11-16 15:50 | DISCHARGE SUMMARY ---
ADMISSION DATE: 11/13/2019 DISCHARGE DATE: 11/16/2019 DISPOSITION: Home. FOLLOWUP: Will be Ms. Rachael Hernandez. CONSULTATION DURING THIS ADMISSION: None. IMAGING STUDIES OF SIGNIFICANCE: 1. A CT scan of the abdomen and pelvis did show a right lower lobe pneumonia, multiple moderate distended loops of small bowel, most significant for a partial small bowel obstruction. 2. A KUB done a couple days later showed no evidence of bowel obstruction. ADMISSION DIAGNOSES: 1. Partial small bowel obstruction. 2. Urinary tract infection. 3. Diabetes mellitus. 4. Hypertension. DIAGNOSES AT THE TIME OF DISCHARGE: 1. Partial small bowel obstruction, resolved. 2. Diabetes mellitus, controlled. 3. Hypertension, controlled. 4. Recently diagnosed with pneumonia/bronchitis with positive for Coronavirus Disease 2018. 5. Suspected hypothyroidism. DISCHARGE MEDICATIONS: 1. Trulicity 0.7 injection every 7 days. 2. Cyanocobalamin. 3. Diltiazem 100 mg p.o. daily. 4. Levofloxacin 500 p.o. daily. PRESENTING COMPLAINT: Abdominal pain. HISTORY OF PRESENT COMPLAINT: Ms. Kamara, a 34-year-old female who is being treated for some pneumonia, I understand was swabbed COVID-19, came to the emergency room because of abdominal pain, was found to have a partial small bowel obstruction on imaging. She was admitted for further medical care. HOSPITAL COURSE: The patient was admitted, initially was kept n.p.o., adequately fluid resuscitated. She was not on any isolation initially since we did not know about COVID-19 status. The staff was noted from the PCP office that Ms Kamara's COVID-19 test was positive. She was subsequently put on isolation. We continued the treatment for her pneumonia and small bowel obstruction and suspected urinary tract infection. The urine culture came back negative. Blood cultures also were negative. She started having bowel movement. Abdominal pain got subsided. We started her on clears and advance it to full liquid diet. Today, she is taking a regular diet, she is tolerating that. We think she is okay to be discharged. Ms. Kamara was found to have elevated TSH, which she has had in the past as well. We ordered a free T4, cholesterol for us to get an idea what the free T4 is comparing with a TSH to know where the disease process is on the hypothalamus thyroid axis. Unfortunately, Ms Kamara refused the test, so we have advised that she follows up with her primary care so they can do testing to make sure if she has a primary hypothyroidism or a secondary hyperthyroidism. All the discharge instructions have been discussed with her. We have also advised Ms Kamara to self-quarantine herself for 14 days because of the positivity on her test. She is clinically stable at this point. She is not showing any respiratory signs or symptoms. TIME SPENT FOR DISCHARGE: 35 minutes. cc: Miguel A Ornelas MD MTDD
== END 2019-11-16 15:36 | disposition home or self-care (01) | DRG 388 ==
LOC: ED 23:26 → SUATTDRO 23:27 → 3N 11-14 04:09 → 4N 11-14 14:11
PROVIDERS: ATTEND Internal Medicine